=== PATIENT | male | born 1985 | race Caucasian/White ===

== ENCOUNTER 2020-10-13 12:29 | Emergency (ER) | payer OTHER ==
[2020-10-13] MEDS ORDERED: Flexeril PO (16:11)
[2020-10-13] MEDS ORDERED: Voltaren Gel 1 % TOP (16:11)
[2020-10-13] MEDS ORDERED: MEDROL DOSEPAK 24 MG PO (16:11)
== END 2020-10-13 16:16 | disposition home or self-care (01) ==
LOC: ER1 12:29
DX: M54.5 Low back pain (principal); E11.9 Type 2 diabetes mellitus without complications
CPT/HCPCS: 72100; 99283; J1100; J1885